=== PATIENT | male | born 1945 | race Caucasian/White ===

== ENCOUNTER → 2017-02-11 | Outpatient (CLI) | payer OTHER | LOC: BMCIMAGING 10:24 | PROVIDERS: ATTEND Family Medicine | DX: R05 Cough (principal); Z87.01 Personal history of pneumonia (recurrent) ==

== ENCOUNTER 2018-05-02 19:05 | Emergency (ER) | payer OTHER ==
--- NOTE | 2018-05-02 19:37 | EDPHY ---
H & P Stated Complaint: Vertigo hx, new antibiotic, n/v worse, "blocked tubes" Time Seen by Provider: 05/02/18 19:37 HPI/ROS: CHIEF COMPLAINT: Chronic vertigo, vomiting HISTORY OF PRESENT ILLNESS: The patient presents to the ED with chronic vertigo and vomiting. The patient has been struggling with vertigo for some time. He is under the care of multiple Ear Nose Throat physicians. He currently is taking Cipro for possible sinus infection. While taking this antibiotic he has developed vomiting without diarrhea. The patient continues to have ongoing symptoms of vertigo. The patient has seen ENT in been refractory to the Lucia maneuver. He has undergone vestibular rehabilitation without improvement of his symptoms. The patient has been using Valium at home. He was initially on a dancer trauma which did not help his vomiting. REVIEW OF SYSTEMS: A comprehensive 10 point review of systems is otherwise negative aside from elements mentioned in the history of present illness. Source: Patient - Personal History Current Tetanus Diphtheria and Acellular Pertussis (TDAP): Yes - Medical/Surgical History Hx Asthma: No Hx Chronic Respiratory Disease: No Hx Diabetes: No Hx Cardiac Disease: No Hx Renal Disease: No Hx Cirrhosis: No Hx Alcoholism: No Hx HIV/AIDS: No Hx Splenectomy or Spleen Trauma: No Other PMH: vertigo, sinusitis - Social History Smoking Status: Never smoked - Physical Exam Exam: General Appearance: Alert, appears uncomfortable secondary to nausea and vertigo Eyes: Pupils equal and round no pallor or injection ENT, Mouth: Mucous membranes moist Respiratory: There are no retractions, lungs are clear to auscultation Cardiovascular: Regular rate and rhythm Gastrointestinal: Abdomen is soft and nontender, no masses, bowel sounds normal Neurological: Mild horizontal nystagmus with rightward gaze, remainder of neurologic examination unremarkable Skin: Warm and dry, no rashes Musculoskeletal: Neck is supple nontender Extremities: symmetrical, full range of motion Psychiatric: Patient is oriented X 3, there is no agitation Constitutional: Initial Vital Signs Temperature (C) 36.6 C 05/02/18 19:20 Heart Rate 64 05/02/18 19:20 Respiratory Rate 18 05/02/18 19:20 Blood Pressure 132/76 H 05/02/18 19:20 O2 Sat (%) 93 05/02/18 19:20 O2 Delivery Mode Room Air Allergies/Adverse Reactions: Penicillins Allergy (Verified 05/02/18 19:24) Home Medications: Medication Instructions Recorded Cipro 05/02/18 Medical Decision Making ED Course/Re-evaluation: The patient presents the ED with vomiting in the setting of chronic vertigo. The patient is currently taking antibiotics for possible sinus infection. The patient has been refractory Lucia and vestibular physical rehabilitation. The patient presents to the ED with likely dehydration in the setting of vomiting possibly from his antibiotics. The patient had an IV established. He received Phenergan and 1 mg of Ativan. Laboratory studies are within normal limits. Patient was re-evaluated at 9:30 p.m. and is currently feeling better. The patient will be given a refill of his Phenergan. He is also given a short course of Ativan to use for management of his symptoms at night. He is encouraged to avoid the use of Valium as this is a longer-acting agent. Differential Diagnosis: Differential diagnosis considered includes benign positional vertigo, sinusitis , dehydration, vomiting, metabolic abnormality - Data Points Laboratory Results: Laboratory Results 05/02/18 19:50 05/02/18 19:50 05/02/18 05/02/18 19:50 19:50 WBC 8.21 10^3/uL 10^3/uL (3.80-9.50) RBC 4.48 10^6/uL 10^6/uL (4.40-6.38) Hgb 14.1 g/dL g/dL (13.7-17.5) Hct 41.1 % % (40.0-51.0) MCV 91.7 fL fL (81.5-99.8) MCH 31.5 pg pg (27.9-34.1) MCHC 34.3 g/dL g/dL (32.4-36.7) RDW 12.9 % % (11.5-15.2) Plt Count 224 10^3/uL 10^3/uL (150-400) MPV 10.9 fL fL (8.7-11.7) Neut % (Auto) 65.9 % % (39.3-74.2) Lymph % (Auto) 23.3 % % (15.0-45.0) [place] % (Auto) 9.0 % % (4.5-13.0) Eos % (Auto) 1.1 % % (0.6-7.6) Baso % (Auto) 0.5 % % (0.3-1.7) Nucleat RBC Rel Count 0.0 % % (0.0-0.2) Absolute Neuts (auto) 5.41 10^3/uL 10^3/uL (1.70-6.50) Absolute Lymphs (auto) 1.91 10^3/uL 10^3/uL (1.00-3.00) Absolute Monos (auto) 0.74 10^3/uL 10^3/uL (0.30-0.80) Absolute Eos (auto) 0.09 10^3/uL 10^3/uL (0.03-0.40) Absolute Basos (auto) 0.04 10^3/uL 10^3/uL (0.02-0.10) Absolute Nucleated RBC 0.00 10^3/uL 10^3/uL (0-0.01) Immature Gran % 0.2 % % (0.0-1.1) Immature Gran # 0.02 10^3/uL 10^3/uL (0.00-0.10) Sodium 135 mEq/L mEq/L (135-145) Potassium 4.4 mEq/L mEq/L (3.3-5.0) Chloride 99 mEq/L mEq/L (97-110) Carbon Dioxide 25 mEq/l mEq/l (22-31) Anion Gap 11 mEq/L mEq/L (8-16) BUN 17 mg/dL mg/dL (7-23) Creatinine 1.0 mg/dL mg/dL (0.7-1.3) Estimated GFR > 60 Glucose 128 mg/dL H mg/dL (70-100) Calcium 9.4 mg/dL mg/dL (8.5-10.4) Medications Given: Discontinued Medications Sodium Chloride (Ns) 1,000 mls @ 0 mls/hr IV EDNOW ONE; Wide Open PRN Reason: Protocol Stop: 05/02/18 20:02 Last Admin: 05/02/18 20:16 Dose: 1,000 mls Lorazepam (Ativan Injection) 1 mg IVP EDNOW ONE Stop: 05/02/18 20:50 Last Admin: 05/02/18 20:56 Dose: 1 mg Promethazine HCl (Phenergan) 12.5 mg IVP EDNOW ONE Stop: 05/02/18 20:02 Last Admin: 05/02/18 20:17 Dose: 12.5 mg Departure - Departure Disposition: Home, Routine, Self-Care Clinical Impression: Vomiting, Chronic vertigo Condition: Good Instructions: Acute Nausea and Vomiting (ED) Additional Instructions: 1. I recommend Ativan instead of Valium. 2. Phenergan as needed for vomiting. 3. Return to the ED for markedly worsening symptoms, severe headache, new neurologic symptoms such as weakness or numbness, difficulty with speech or other concerns. 4. Please follow up with your regular physicians as needed. Referrals: Lin Aj MD [Primary Care Provider] - As per Instructions
[2018-05-02] MEDS ORDERED: ONDANSETRON 4 MG/2 ML VIAL ONE (19:41)
[2018-05-02] MEDS ORDERED: PROMETHAZINE HCL 25 MG/ML INJ IVP ONE (20:01)
[2018-05-02] MEDS ORDERED: NS 1,000 ML IV ONE (20:01)
[2018-05-02 20:09] LABS: PLATELET COUNT 224 10^3/uL (150-400)
[2018-05-02] MEDS ORDERED: LORazepam 2 MG/ML INJ IVP ONE (20:49)
[2018-05-02 21:59] VITALS: BP 110/56
== END 2018-05-02 21:57 | disposition home or self-care (01) ==
DX: R42 Dizziness and giddiness (principal); E86.0 Dehydration; R11.2 Nausea with vomiting, unspecified
CPT/HCPCS: 96374; J2060; J2405; J2550

== ENCOUNTER → 2018-07-30 | Outpatient (CLI) | payer OTHER | LOC: BMCIMAGING 18:13 | PROVIDERS: ATTEND Emergency Medicine | DX: R13.10 Dysphagia, unspecified (principal); M50.30 Other cervical disc degeneration, unspecified cervical region ==

== ENCOUNTER → 2018-10-15 | Outpatient (CLI) | payer OTHER | LOC: FIMAGING 10:17 | PROVIDERS: ATTEND Otolaryngology | DX: R13.10 Dysphagia, unspecified (principal); K21.9 Gastro-esophageal reflux disease without esophagitis; K44.9 Diaphragmatic hernia without obstruction or gangrene; M43.12 Spondylolisthesis, cervical region | CPT/HCPCS: 92611-GN ==